=== PATIENT | female | born 1955 | race Caucasian/White ===

== ENCOUNTER 2018-09-08 10:24 | Emergency (ER) | payer BC ==
[~2018-09-08] VITALS: Ht 154.9 cm; Wt 59.0 kg
[2018-09-08] MEDS ORDERED: LEVO100T PO (10:42)
--- NOTE | 2018-09-08 10:52 | NUR ---
Dr Rabago at the bedside for MSE.
[2018-09-08] MEDS ORDERED: ONDANSETRON ODT 4 MG TAB.RAPDIS SL ONE (11:00)
[2018-09-08] MEDS ORDERED: ONDANSETRON ODT 4 MG TAB.RAPDIS ONE (11:02)
--- NOTE | 2018-09-08 11:07 | NUR ---
Patient discharged to home in stable conditon. Written and verbal after care instructions given. Patient verbalizes understanding of instructions.
[2018-09-08 11:08] VITALS: BP 109/72
== END 2018-09-08 11:12 | disposition home or self-care (01) ==
LOC: ER 10:24
DX: R11.2 Nausea with vomiting, unspecified (principal); R19.7 Diarrhea, unspecified; R10.9 Unspecified abdominal pain; E03.9 Hypothyroidism, unspecified; Z79.899 Other long term (current) drug therapy
CPT/HCPCS: A4663; Q0162